=== PATIENT | female | born 1950 | race African-American/Black ===

== ENCOUNTER 2018-10-28 07:53 | Day surgery (SDC) | payer OTHER ==
[2013-09-22 10:32] VITALS: BP 125/75
[2018-10-28] MEDS ORDERED: SALINE FLUSH 10 ML DISP.SYRIN IVF ONE (08:48)
[2018-10-28] MEDS ORDERED: LACTATED RINGERS 1,000 ML IV.SOLN IV ONE (08:48)
[2018-10-28] MEDS ORDERED: PROPOFOL 200 MG/20 ML VIAL IV ONE (08:48)
--- NOTE | 2018-11-05 12:42 | GI Report ---
REFERRING PHYSICIAN: Dr. Mitzi Bell FLOORING MACHINE FEEDER: Michael Ohara MD PROCEDURE MEDICATION: Propofol as per anesthesia. INDICATIONS: This 68-year-old woman is a high-risk screening. Her brother of colon cancer in his 50s. Mother has had stomach cancer and another brother had lung and liver cancer. She denies any changes in bowel habits. She does have sleep apnea. She is 5 feet 5 inches and weighs 296 pounds. PROCEDURE PERFORMED: Colonoscopy and polyp biopsy. PROCEDURE: An Olympus video colonoscope was advanced to the rectum. 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 We were able to advance all the way to the cecum. The appendiceal orifice and ileocecal valve looked normal. On slow withdrawal, the cecum, ascending colon, and transverse colon with redundancy but no obvious intraluminal lesions noted. The descending colon and proximal sigmoid with redundancy. No obvious intraluminal lesions were noted. At the rectosigmoid junction, somewhere around 10 or 12 cm, the patient had a couple of little flat polyps 2 to 3 mm in size, just cold biopsy removed and submitted to pathology. Retroflexion of the rectum was normal. Patient tolerated the procedure well. FINDINGS: 1. Two polyps removed at the rectosigmoid to submit to pathology. 2. An atonic redundant colon. RECOMMENDATIONS: 1. A high-fiber diet. 2. Stay away from Senna. MiraLAX is fine. 3. Pending the pathology of the polyp, she needs here colon re-looked again within 5 years. cc: Dr. Mitzi BROWNE
== END 2018-10-28 07:54 ==
LOC: OPSURG 07:53
PROVIDERS: ATTEND Internal Medicine Gastroenterology
DX: K63.5 Polyp of colon (principal); Z12.11 Encounter for screening for malignant neoplasm of colon; Z80.0 Family history of malignant neoplasm of digestive organs
CPT/HCPCS: G0105; J2704; J7120; S1016